=== PATIENT | female | born 1965 | race Caucasian/White ===

== ENCOUNTER 2018-10-05 00:05 | Emergency (ER) | payer MEDICAID, OTHER ==
[~2018-10-05] VITALS: Ht 162.6 cm; Wt 86.7 kg
[~2018-10-05 00:05] MED LIST: CLA10T PO; HYDR-3686 PO; PRED20TA PO
[2018-10-05 00:08] VITALS: BP 126/82
[2018-10-05] MEDS ORDERED: morphine 4 MG/ML inj SYRINge IM ONE (02:05)
[2018-10-05] MEDS ORDERED: LIDOcaine 1.5% w/epinephrine 1:200,000 5ml ampul IJ ONE (02:05)
[2018-10-05] MEDS ORDERED: ondansetron 4mg rapidly disintigrating tab PO ONE (02:05)
[2018-10-05] MEDS ORDERED: LIDOcaine 1% w/epiNEPHrine 1:200,000 30ml vial IJ ONE (02:05)
[2018-10-05] MEDS ORDERED: SULF1TAB49 PO (03:05)
[2018-10-05] MEDS ORDERED: TRAM50TA2 PO (03:05)
== END 2018-10-05 03:52 | disposition home or self-care (01) ==
LOC: ER 00:08
DX: L02.31 Cutaneous abscess of buttock (principal); Z79.899 Other long term (current) drug therapy
CPT/HCPCS: 10060; 96372; 99283; J2270; J3490